=== PATIENT | female | born 1930 | race Caucasian/White ===

== ENCOUNTER 2018-07-26 21:13 | Inpatient (IN) | payer OTHER, MEDICAID ==
[2018-07-26] MEDS ORDERED: Sodium Chloride 0.9% 1,000 ML IV ONE ×2 (21:35→22:13)
--- NOTE | 2018-07-26 22:33 | ED Physician Chart ---
ED Chief Complaint/HPI - Patient Information Date Seen:: 07/26/18 Time Seen:: 21:20 Chief Complaint:: vomiting coffee ground emesis History of Present Illness:: this is a chronically ill 87 yo female from home via ems for an evaluation of her vomiting blood. she has alzheimers, copd,a fib, htn, chf, thyroid disease and ulcers. Allergies:: Allergies Allergy/AdvReac Type Severity Reaction Status Date / Time morphine Allergy Verified 07/26/18 21:18 Penicillins Allergy Verified 07/26/18 21:18 Vitals:: Vital Signs - 8 hr 07/26/18 21:15 Temp 98.1 F HR 150 RR 30 BP 92/47 O2 Sat % 99 Historian:: Family Member (daughter) Review:: Nurse's Note Reviewed ED Review of Systems - Review of Systems General/Constitutional: No fever, No chills, No weight loss, No weakness, No diaphoresis, No edema, No loss of appetite, Other (this patient is unable to give a review of systems.) Skin: No skin lesions, No rash, No bruising Head: No headache, No light-headedness Eyes: No loss of vision, No pain, No diplopia ENT: No earache, No nasal drainage, No sore throat, No tinnitus Neck: No neck pain, No swelling, No thyromegaly, No stiffness, No mass noted Cardio Vascular: No chest pain, No palpitations, No PND, No orthopnea, No edema Pulmonary: No SOB, No cough, No sputum, No wheezing GI: No nausea, No vomiting, No diarrhea, No pain, No melena, No hematochezia, No constipation, No hematemesis G/U: No dysuria, No frequency, No hematuria Musculoskeletal: No bone or joint pain, No back pain, No muscle pain Endocrine: No polyuria, No polydipsia Psychiatric: No prior psych history, No depression, No anxiety, No suicidal ideation Hematopoietic: No bruising, No lymphadenopathy Allergic/Immuno: No urticaria, No angioedema Neurological: No syncope, No focal symptoms, No weakness, No paresthesia, No headache, No seizure, No dizziness, No confusion, No vertigo ED Past Medical History - Past Medical History Obtainable: Yes Past Medical History: HTN, CAD, CHF, Asthma/COPD, Dementia Family History: None Social History: Non Smoker, No Alcohol, No Drug Use Surgical History: None Psychiatricy History: Dementia Medication: Reviewed Family Medical History - Family Member Mother History Unknown: Yes ED Physical Exam - Physical Examination General/Constitutional: Well-developed, well-nourished, Alert, No distress, GCS 15, Non-toxic appearing, Ambulatory Other Gen/Cons comments:: lethargic Head: Atraumatic Eyes: Lids, conjuctiva normal, PERRL, EOMI Skin: Nl inspection, No rash, No skin lesions, No ecchymosis, Well hydrated ( dehydrated), No lymphadenopathy ENMT: External ears, nose nl, Nasal exam nl, Lips, teeth, gums nl Neck: Nontender, Full ROM w/o pain, No JVD, No nuchal rigidity, No bruit, No mass, No stridor Respiratory: Nl effort/Exclusion, Clear to Auscultation, No Wheeze/Rhonchi/Rales Cardio Vascular: RRR, No murmur, gallop, rubs, NL S1 S2 GI: No tenderness/rebounding/guarding, No organomegaly, No hernia, Normal BS's, Nondistended, No mass/bruits, No McBurney tenderness Other GI comments:: coffee ground emesis around the month. : No CVA tenderness Extremities: No tenderness or effusion, Full ROM, normal strength in all extremities, No edema, Normal digits & nails Neuro/Psych: Alert/oriented, DTR's symmetric, Normal sensory exam, Normal motor strength, Judgement/insight normal, Mood normal, Normal gait, No focal deficits Misc: Normal back, No paraspinal tenderness ED Assessment - Assessment General Assessment: hypotension dehydration upper gi bleeding ED Septic Shock - . Is Septic Shock (SBP<90, OR Lactate>4 mmol\L) present?: No - <6hrs of presentation: Vital Signs: Vital Signs - 8 hr 07/26/18 21:15 Temp 98.1 F HR 150 RR 30 BP 92/47 O2 Sat % 99 ED Reassessment (Disposition) - Reassessment Reassessment Condition:: Improved - Diagnosis Diagnosis:: hypotension upper gi bleeding lactic acicdosis - Patient Disposition Discharge/Transfer:: Acute Care w/in this hosp Admitting Medical Physician:: Osbaldo Spicer Condition at Disposition:: Improved
[2018-07-26 22:34] LABS: % BASOPHILS 0.3 % (0.0-2.0); % EOSINOPHILS 0.3 % (0.0-5.0); % LYMPHOCYTES 14.5 % (20.0-50.0); % MONOCYTES 8.5 % (2.0-10.0); % NEUTROPHILS 76.4 % (40.0-80.0); BASOPHILE ABSOLUTE 0.1 Th/cumm (0-0.2); EOSINOPHILE ABSOLUTE 0.1 Th/cmm (0.1-0.4); HEMOGLOBIN 13.8 gm/dL (12-16); LYMPHOCYTE ABSOLUTE 2.5 Th/cmm (1.5-3.0); MEAN CELL VOLUME 94.4 fl (81-100); MEAN CORPUSCULAR HEMOGLOBIN 29.6 pg (27.0-31.0); MEAN CORPUSCULAR HGB CONC 31.3 pg (28.0-36.0); MEAN PLATELET VOLUME 9.4 fl; MONOCYTE ABSOLUTE 1.4 Th/cmm (0.3-1.0); NEUTROPHILE ABSOLUTE 12.8 Th/cmm (1.8-8.0); PLATELET COUNT 114 Th/cmm (150-400); RED BLOOD COUNT 4.66 Mil/cmm (3.80-5.20); RED CELL DISTRIBUTION WIDTH 14.8 % (11.5-20.0)
[2018-07-26 22:45] LABS: WHITE BLOOD COUNT 16.9 Th/cmm (4.8-10.8)
[2018-07-26 22:48] LABS: ALB/GLOB RATIO 0.9 (1.0-1.8); ALBUMIN 2.8 gm/dL (3.7-5.3); ALKALINE PHOSPHATASE 49 U/L (34-104); ANION GAP 23.4 (7.0-16.0); BILIRUBIN,TOTAL 0.6 mg/dL (0.3-1.0); CALCIUM SERUM 9.1 mg/dL (8.6-10.3); CARBON DIOXIDE 18.1 mEq/L (21.0-31.0); CHLORIDE 102 mEq/L (98-107); CREATININE - SERUM 2.1 mg/dL (0.6-1.2); GLUCOSE 265 mg/dL (70-105); POTASSIUM SERUM 4.5 mEq/L (3.5-5.1); SGOT 13 U/L (13-39); SGPT/ALT 8 U/L (7-52); SODIUM SERUM 139 mEq/L (136-145); TOTAL PROTEIN,SERUM 6.1 gm/dL (6.0-8.3)
[2018-07-26 22:51] LABS: BUN - UREA NITROGEN 80 mg/dL (7-25)
[2018-07-26 22:53] LABS: INR 1.19 (0.5-1.4); PROTHROMBIN TIME (TEST) 12.3 SECONDS (9.5-11.5)
[2018-07-26] MEDS ORDERED: Sodium Bicarbonate 8.4% 50mEq PFS IVP STA (22:55)
[2018-07-26] MEDS ORDERED: Sodium Chloride 0.45% 1,000 ML IV ONE (23:00)
[2018-07-26] MEDS ORDERED: Sodium Bicarbonate 8.4% 50mEq PFS IVP ONE (23:20)
[2018-07-26] MEDS ORDERED: guaiFENesin 200 MG/10 ML UDC PO PRN (23:23)
[2018-07-26] MEDS ORDERED: Levofloxacin 500mg/100mL 500 MG/100 ML BAG IV SCH (23:30)
[2018-07-26] MEDS ORDERED: D5-0.9%NS 1,000 ML IV SCH (23:30)
[2018-07-27] MEDS ORDERED: guaiFENesin 200 MG/10 ML UDC PO PRN (00:13)
[2018-07-27] MEDS ORDERED: D5-0.9%NS 1,000 ML IV SCH (00:17)
[2018-07-27] MEDS ORDERED: Diltiazem 5 mg/mL 5mL Vial IVP PRN (00:44)
[2018-07-27] MEDS ORDERED: Levofloxacin 500mg/100mL Premix Bag IV ONE (00:45)
[2018-07-27 00:52] LABS: pH 7.41 (7.35-7.45)
[2018-07-27 01:24] VITALS: BP 105/77
[2018-07-27] MEDS ORDERED: Sodium Bicarbonate 8.4% 50mEq PFS IVP ONE (01:30)
[2018-07-27] MEDS ORDERED: Albumin 25% 25gm/100mL 25 GM/100 ML BTL IV ONE ×2 (01:30→01:40)
[2018-07-27] MEDS ORDERED: Norepinephrine 4 mg/4mL Vial IV ONE ×4 (01:34→07:37)
--- NOTE | 2018-07-27 02:42 | History & Physical ---
ADMIT DATE: 07/27/2018 CHIEF COMPLAINT: Coffee-ground emesis. HISTORY OF PRESENT ILLNESS: This is an 87-year-old female with history of hypertension, CAD, CHF, COPD, dementia, admitted apparently from home secondary to coffee-ground emesis. The patient is not a good historian. Denies chest pain or shortness of breath. She is complaining of abdominal discomfort. PAST MEDICAL HISTORY: As mentioned in history of present illness. PAST SURGICAL HISTORY: Denies surgeries in the past. MEDICATIONS: Namenda, ____, famotidine, Lasix, metoprolol, Risperdal, tramadol, latanoprost, and Synthroid. ALLERGIES: THE PATIENT IS ALLERGIC TO PENICILLIN. SOCIAL HISTORY: Nonsmoker, nondrinker. FAMILY HISTORY: Noncontributory. REVIEW OF SYSTEMS: This is limited secondary to the patient's current mental state. We will try to obtain more detailed review of systems at a later date by talking to family members. Apparently, the daughter was here earlier, she had just stepped out. PHYSICAL EXAMINATION: VITAL SIGNS: Blood pressure is 190/70, respirations ____, pulse is 150, and temperature is 98.1. NECK: Supple. LUNGS: Clear breath sounds, few rhonchi. HEART: Regular rate and rhythm. Systolic ejection murmur. ABDOMEN: Soft, globular, positive bowel sounds. EXTREMITIES: Positive excoriations, appreciable edema. NEUROLOGIC: Limited. LABORATORY DATA: WBC is 16, hemoglobin is 13, and platelets 114. INR is 1.1, BUN is 80, creatinine is 2.1, sodium is 139, and potassium is 4.5. Lactic acid is 6.1. Troponin is 0.15. Albumin is 2.8. ASSESSMENT: 1. Hypotension. 2. Coffee-ground emesis. 3. Leukocytosis. 4. Sepsis. 5. Thrombocytopenia. 6. Acute on chronic renal failure. 7. History of congestive heart failure. 8. Lactic acidosis. 9. Elevated troponin/myocardial infarction type 2. 10. Moderate protein-calorie malnutrition. 11. Hypothyroidism. 12. Dementia. 13. Psych disorder. PLAN: We will ___start_ on bronchodilator treatments. We will hold aspirin and nonsteroidal anti-inflammatory drugs. Continue the patient on proton pump inhibitor. We will refer the patient to GI. We will empirically start the patient on IV antibiotic, on Levaquin as well as vancomycin. We will continue the patient on antiemetic medications. We will admit the patient to ICU. We will monitor the patient closely. We will refer the patient to Cardiology as well as GI. will give pressors as needed. JOB# [id number] MTDD
[2018-07-27] MEDS ORDERED: Albuterol Nebulizer 2.5mg/3mL HHN SCH ×2 (07:00)
[2018-07-27] MEDS ORDERED: Ipratropium Neb 0.5 mg/2.5 mL UD IH SCH (07:00)
[2018-07-27] MEDS ORDERED: Ipratropium Neb 0.5 mg/2.5 mL UD HHN SCH (07:00)
[2018-07-27] MEDS ORDERED: Phenylephrine HCl 50 MG in Sodium Chloride 0.9% 250 ML IV SCH (07:15)
[2018-07-27] MEDS ORDERED: Hydrocortisone Sodium Succ 100 mg Vial IVP SCH ×2 (07:16→13:00)
[2018-07-27] MEDS ORDERED: Levothyroxine 0.088 Mg Tab PO SCH ×2 (07:30)
[2018-07-27] MEDS ORDERED: INSULIN ASPART, RECOMBINANT 100 UNITS/ML SUBQ SCH ×2 (07:30)
[2018-07-27] MEDS ORDERED: Albumin 25% 25gm/100mL 25 GM/100 ML BTL IV SCH (08:00)
--- NOTE | 2018-07-27 09:38 | Discharge Summary ---
DATE OF DISCHARGE: 07/27/2018 DISCHARGE/EXPIRATION SUMMARY CHIEF COMPLAINT: Coffee-ground emesis. FINAL DIAGNOSES: The patient , hypotension/septic shock, coffee-ground emesis/GI bleeding, leukocytosis, sepsis, acute and chronic renal failure, thrombocytopenia, history of CHF, lactic acidosis, elevated troponin/myocardial infarction type 2, moderate protein-calorie malnutrition, hypothyroidism, dementia, psych disorder. HISTORY: This is an 87-year-old female with history of hypertension, CAD, CHF, COPD, dementia, admitted from secondary coffee-ground emesis. The patient is with a low blood pressure, admitted to ICU. HOSPITAL COURSE: The patient was admitted to ICU, was placed on vasopressor support on multiple IV antibiotic and initially on Levaquin and vancomycin. The patient was placed on Levophed and later maxed out and added Lopez-Synephrine and hydrocortisone and aggressive IV hydration and given albumin by medical floor. The patient since was DNR. The patient was referred to the prior upper GI Dr. Nicolas for Pulmonary, Dr. Noonan, but the patient continued to deteriorate and . CONDITION ON DISCHARGE: The patient . DISCHARGE INSTRUCTIONS: The patient's ____ were aware and alert the final outcome. JOB# [id number]
--- NOTE | 2018-07-27 09:58 | Diagnostic Imaging Report ---
Portable chest x-ray HISTORY: Shortness of breath The exam is limited due to patient rotation and difficulty in positioning. The heart is enlarged. Poor visualization of the right lower lobe/right hemidiaphragm. No obvious focal processes. IMPRESSION: 1. Limited exam 2. Cardiomegaly 3. No obvious focal pulmonary processes
--- NOTE | 2018-07-27 10:22 | Diagnostic Imaging Report ---
Portable chest x-ray HISTORY: Shortness of breath The exam is limited due to patient rotation and a poor inspiration. The heart is enlarged. Atherosclerotic calcification seen in the aorta. No focal pulmonary processes. IMPRESSION: 1. No definite focal pulmonary processes 2. Cardiomegaly with atherosclerotic vascular changes
[2018-07-27] MEDS ORDERED: Non-Formulary Item 1 EA (Latanoprost/Pf [Latanoprost 0.005% Eye Drop] 1 DROP) EACH EYE SCH (21:00)
[2018-07-28] MEDS ORDERED: Levofloxacin 250mg/50mL 250 MG/50 ML BAG IV SCH (21:00)
== END 2018-07-27 08:05 | disposition expired | DRG 871 ==
LOC: ER 21:13 → ICU 23:10
PROVIDERS: ADMIT Internal Medicine; ATTEND Internal Medicine
PROC: 5A09357 Assistance with Respiratory Ventilation, Less than 24 Consecutive Hours, Continuous Positive Airway Pressure (ICD-10-PCS; principal; 2018-07-27)
DX: A41.9 Sepsis, unspecified organism (principal); I21.A1 Myocardial infarction type 2; R65.21 Severe sepsis with septic shock; K92.2 Gastrointestinal hemorrhage, unspecified; I13.0 Hypertensive heart and chronic kidney disease with heart failure and stage 1 through stage 4 chronic kidney disease, or unspecified chronic kidney disease; N17.9 Acute kidney failure, unspecified; E44.0 Moderate protein-calorie malnutrition; J44.9 Chronic obstructive pulmonary disease, unspecified; I48.91 Unspecified atrial fibrillation; I50.9 Heart failure, unspecified; G30.9 Alzheimer's disease, unspecified; I95.9 Hypotension, unspecified; I25.10 Atherosclerotic heart disease of native coronary artery without angina pectoris; F02.80 Dementia in other diseases classified elsewhere, unspecified severity, without behavioral disturbance, psychotic disturbance, mood disturbance, and anxiety; E86.0 Dehydration; D69.6 Thrombocytopenia, unspecified; N18.9 Chronic kidney disease, unspecified; F29 Unspecified psychosis not due to a substance or known physiological condition; E03.9 Hypothyroidism, unspecified; Z66 Do not resuscitate; Z68.21 Body mass index [BMI] 21.0-21.9, adult; Z88.0 Allergy status to penicillin; Z88.5 Allergy status to narcotic agent
CPT/HCPCS: 36415-UA; 36600-90; 71045-TC; 80053-TC; 82803-TC; 82948-90; 83036-90; 83605; 84484-TC; 85025-TC; 85610-TC; 85730-TC; 90779; 93005; 94640; 94660; 96374; 96375; J0696; J1815; J1956; J2370; J3370; J7030; J7042; J7613; P9046; X6452; Z7610